=== PATIENT | female | born 1950 | race Caucasian/White ===

== ENCOUNTER → 2021-08-20 16:35 | Outpatient (CLI) | payer MEDICARE, SELFPAY ==
[2021-08-20 17:20] LABS: Hematocrit 29.1 % (37-47); Hemoglobin 9.5 g/dL (12.0-15.0); Mean Corp Hgb Conc 32.6 g/dL (32-36); Mean Corpuscular Hgb 30.9 pg (27.0-32.0); Mean Corpuscular Volume 94.8 fL (81-99); Mean Platelet Vol. 9.7 fl (6.2-12.0); POSITIVE COUNT YES; POSITIVE DIFFERENTIAL YES; POSITIVE MORPHOLOGY YES; Platelet Count 229 K/mm3 (150-450); RBC Distribution Width CV 14.9 % (11.6-14.6); RBC Distribution Width SD 51.4 fl (35.1-43.9); Red Blood Count 3.07 M/mm3 (4.2-5.4); White Blood Count 16.6 K/mm3 (4.4-11.0)
[2021-08-20 17:28] LABS: Differential Indicated MANUAL DIFF
[2021-08-20 17:50] LABS: Lymphocyte 10 % (19-41); Monocyte 7 % (0-10); Neutrophil-Band 1 % (0-5); Neutrophil-Segmented 82 % (47-70); Nucleated Red Bld Cells,Manual 3 % (0-5); Total Cells Counted 100 (MANUAL DIFF)
[2021-08-20 17:51] LABS: Absolute Neutrophil Count 13.7 X10^3/uL (2.0-7.7)
[2021-08-20 17:52] LABS: Absolute Lymphocyte Count 1.66 X10^3/uL (0.83-4.51)
[2021-08-20 17:58] LABS: ALB/GLOB Ratio 0.9 RATIO (0.9-2.4); AST(SGOT) 21 U/L (15-37); Alanine Aminotransfer ALT/SGPT 45 U/L (13-56); Alkaline Phosphatase 106 U/L (45-117); Anion Gap 8 (5-15); BUN 51 mg/dL (7-18); BUN/Creat Ratio 27.4 RATIO (10-20); Chloride 99 mmol/L (98-107); Creatinine, Serum 1.86 mg/dL (0.55-1.02); EST Glomerular Filtration Rate 28 mL/min (>60); Est Glom Filt Rate - Afr Amer 34 mL/min (>60); Globulin 3.4 g/dL (2.2-4.2); Glucose 248 mg/dL (74-106); Potassium 3.5 mmol/L (3.5-5.1); Protein, Total 6.4 g/dL (6.4-8.2); Sodium Level 143 mmol/L (136-145); Thyroid Stim Hormone (TSH) 0.65 uIU/mL (0.358-3.74)
[2021-08-21 02:26] LABS: Red Cell Morphology NORM C+C NORMAL (NORM C&C)
[2021-08-21 02:29] LABS: Platelet Estimate ADEQUATE (ADEQ)
[2021-08-21 10:35] LABS: Hepatitis C Antibody Non-Reactive (Nonreactive); Vitamin D,25 Hydroxy 32.4 ng/mL
[2021-08-21 14:13] LABS: Pathologist Review Reviewed
[2021-08-22 13:35] LABS: Hemoglobin A1c 8.4 % (3.8-5.6)
== END ==
PROVIDERS: PCP Family Medicine Geriatric Medicine; Visit Provider Family Medicine Geriatric Medicine
DX: Z13.89 Encounter for screening for other disorder (principal); E55.9 Vitamin D deficiency, unspecified; R79.9 Abnormal finding of blood chemistry, unspecified; R53.83 Other fatigue
CPT/HCPCS: 36415; 80053; 82306; 83036; 84443; 85025; 86803

== ENCOUNTER → 2021-08-26 10:00 | Outpatient (CLI) | payer MEDICARE, SELFPAY ==
[2021-08-26 12:42] LABS: Absolute Lymphocyte Count 1.25 X10^3/uL (0.83-4.51); Absolute Neutrophil Count 13.2 X10^3/uL (2.0-7.7); Basophil# 0.05 X10^3/uL; Basophil% 0.3 % (0-1); Hematocrit 32.6 % (37-47); Hemoglobin 10.2 g/dL (12.0-15.0); Lymphocyte # 1.25 X10^3/ul (0.83-4.51); Lymphocyte % 7.7 % (19-41); Mean Corp Hgb Conc 31.3 g/dL (32-36); Mean Corpuscular Hgb 30.1 pg (27.0-32.0); Mean Corpuscular Volume 96.2 fL (81-99); Mean Platelet Vol. 10.5 fl (6.2-12.0); Monocyte# 1.25 X10^3/uL; Monocyte% 7.7 % (0-10); NRBC Flagged by Analyzer 0.1 % (0-5); Neutrophil # 13.23 X10^3/uL (2.7-7.7); Platelet Count 209 K/mm3 (150-450); RBC Distribution Width CV 14.7 % (11.6-14.6); RBC Distribution Width SD 51.4 fl (35.1-43.9); RET-HE 35.5 pg (30-35); Red Blood Count 3.39 M/mm3 (4.2-5.4); Reticulocyte Count 1.96 % (0.5-1.5); White Blood Count 16.3 K/mm3 (4.4-11.0)
[2021-08-26 12:55] LABS: Vitamin B12 1223 pg/mL (211-911)
[2021-08-26 13:10] LABS: Ferritin 63 ng/mL (8-252); Iron 64 ug/dL (50-170); Iron Binding Capacity,Total 300 ug/dL (250-450); PERCENT IRON SATURATION 21.3 % (15.0-55.0)
== END ==
PROVIDERS: PCP Family Medicine Geriatric Medicine; Visit Provider Family Medicine Geriatric Medicine
DX: D64.9 Anemia, unspecified (principal)
CPT/HCPCS: 36415; 82607; 82728; 82746; 83540; 83550; 85025; 85045

== ENCOUNTER → 2021-08-26 10:20 | Outpatient (CLI) | payer MEDICARE, SELFPAY ==
--- NOTE | 2021-08-26 10:34 | RAD_ITS ---
STUDY: X-RAY CHEST REASON FOR EXAM: Female, 71 years old. PLEURISY TECHNIQUE: PA and lateral views of the chest. COMPARISON: None. FINDINGS: Lungs are hyperexpanded with coarsened interstitial lung markings. Nodular densities of the right lung appear to correlate to anterior rib ends rather than parenchymal nodules. No dense airspace consolidation. There is no demonstrated pleural abnormality. Normal size heart. Normal mediastinum and yo. Normal visualized pulmonary arteries. There is atherosclerotic calcification of the aortic arch with tortuosity. There are diffuse degenerative changes of the visualized thoracic spine. Normal visualized ribs, clavicles, and shoulders. There is no demonstrated abnormality of the visualized soft tissue structures of the upper abdomen. RAD/Chest PA and Lateral IMPRESSION: 1. No airspace consolidation or pleural effusion. No pneumothorax. 2. Coarsened interstitial lung markings. Probable artifact/rib ends of the right chest rather than pulmonary nodule. However, no comparison study. Recommend either short-term follow-up versus chest CT. Electronically Signed: Bro Carrera MD (Brooks) at 11:24 EST , Service support ,
== END ==
PROVIDERS: PCP Family Medicine Geriatric Medicine; Referring Provider Family Medicine Geriatric Medicine; Visit Provider Family Medicine Geriatric Medicine
DX: R09.1 Pleurisy (principal)
CPT/HCPCS: 71046

== ENCOUNTER → 2021-09-05 15:57 | Outpatient (CLI) | payer MEDICARE, SELFPAY ==
--- NOTE | 2021-09-05 16:00 | RAD_ITS ---
STUDY: X-RAY - ABDOMEN/PELVIS REASON FOR EXAM: Female, 71 years old. ABD PAIN TECHNIQUE: Two AP supine views of the abdomen and pelvis. COMPARISON: None. FINDINGS: Normal visualized lung bases. There is a moderate amount of colonic fecal material. Gaseous distended loops of large bowel. There is no demonstrated free abdominal air. The visualized liver, spleen and kidneys are grossly normal in size and morphology. Normal soft tissue structures. There are diffuse degenerative changes of the visualized lumbar spine. Left hip postsurgical changes RAD/Abdomen Single View IMPRESSION: Fecal retention in the colon. Gaseous distended loops of large bowel. Electronically Signed: Guevara Demarco DO at 6:41 EST Tel , Service support ,
[2021-09-05 17:40] LABS: Anion Gap 8 (5-15); BUN 30 mg/dL (7-18); BUN/Creat Ratio 13.8 RATIO (10-20); Calcium,Total 9.9 mg/dL (8.5-10.1); Chloride 98 mmol/L (98-107); Creatinine, Serum 2.17 mg/dL (0.55-1.02); EST Glomerular Filtration Rate 24 mL/min (>60); Est Glom Filt Rate - Afr Amer 29 mL/min (>60); Glucose 104 mg/dL (74-106); Potassium 4.1 mmol/L (3.5-5.1); Sodium Level 140 mmol/L (136-145)
[2021-09-05 17:43] LABS: Absolute Lymphocyte Count 1.58 X10^3/uL (0.83-4.51); Absolute Neutrophil Count 10.5 X10^3/uL (2.0-7.7); Basophil# 0.03 X10^3/uL; Basophil% 0.2 % (0-1); Eosinophil# 0.22 X10^3/uL; Eosinophils% 1.7 % (0-5); Hematocrit 34.3 % (37-47); Hemoglobin 10.7 g/dL (12.0-15.0); Lymphocyte # 1.58 X10^3/ul (0.83-4.51); Lymphocyte % 11.9 % (19-41); Mean Corp Hgb Conc 31.2 g/dL (32-36); Mean Corpuscular Hgb 30.4 pg (27.0-32.0); Mean Corpuscular Volume 97.4 fL (81-99); Mean Platelet Vol. 10.4 fl (6.2-12.0); Monocyte# 0.91 X10^3/uL; Monocyte% 6.8 % (0-10); NRBC Flagged by Analyzer 0 % (0-5); Neutrophil # 10.48 X10^3/uL (2.7-7.7); Neutrophil % 78.7 % (47-70); Platelet Count 193 K/mm3 (150-450); RBC Distribution Width CV 14.6 % (11.6-14.6); RBC Distribution Width SD 52.2 fl (35.1-43.9); Red Blood Count 3.52 M/mm3 (4.2-5.4); White Blood Count 13.3 K/mm3 (4.4-11.0)
== END ==
PROVIDERS: PCP Family Medicine Geriatric Medicine; Referring Provider Family Medicine Geriatric Medicine; Visit Provider Family Medicine Geriatric Medicine
DX: R10.9 Unspecified abdominal pain (principal)
CPT/HCPCS: 36415; 74018; 80048; 85025

== ENCOUNTER 2021-09-11 07:35 | Day surgery (SDC) | payer MEDICARE, SELFPAY ==
[2021-09-11 08:09] VITALS: BP 126/57; PULSE 79; RESP 18; TEMP 36.9; O2SAT 99; BMI 23.1
--- NOTE | 2021-09-11 08:18 | HP.PCM_ITS ---
History and Physical Date of Admission: 09/11/21 Date of Service: 09/05/21 MR#:[id number]:[id number]: VIKKI BATEMAN [facility] #:[id number]:1950 Provider:Damion Zaidi/Sex: 71/F [facility]Signed Intake Vital Signs 09/05/21 13:30 Height 5 ft 10 in Weight: 165 lb 8 oz BMI 23.7 BP 136/78 H Blood Pressure Location Rt brachial Position Sitting Respiration 18 Pulse 100 Pulse Source NIBP Temp 97.8 F Temp Source Temporal Pulse Oximetry (%) 97 Oxygen Delivery Method room air Intake Visit Reasons: ANEMIA, EGD, CSCOPE Chief Complaint: anemia, gerd, fam hx colon cancer Soap Maker Required: No Is patient in pain?: No Allergies No Known Allergies Allergy (Verified 09/05/21 13:31) Medications bacitracin zinc 500 unit/gram topical ointment gm TOPICAL 09/05/21 [History Confirmed 09/05/21] citalopram 10 mg tablet 10 mg PO DAILY tab 09/05/21 [History Confirmed 09/05/21] glimepiride 1 mg tablet 1 mg PO BID tab 09/05/21 [History Confirmed 09/05/21] ipratropium 0.5 mg-albuterol 3 mg (2.5 mg base)/3 mL nebulization soln 3 ml CONTINUOUS NEBULIZATION TID PRN ml 09/05/21 [History Confirmed 09/05/21] metoprolol tartrate 25 mg tablet 25 mg PO BID tab 09/05/21 [History Confirmed 09/05/21] oxymetazoline 0.05 % nasal spray 2 spray INTRANASAL BID PRN ml 09/05/21 [History Confirmed 09/05/21] pantoprazole 40 mg tablet,delayed release 40 mg PO DAILY tab 09/05/21 [History Confirmed 09/05/21] Is last menstrual period known: No Post menopausal: Yes Patient : No PFSH Medical History (Updated 09/06/21 @ 12:[address] Rebeca Snow MD) Anxiety and depression COPD (chronic obstructive pulmonary disease) Diabetes Heart attack HTN (hypertension) Surgical History (Updated 09/06/21 @ 12:[address] Rebeca Snow MD) History of cardiac catheterization History of colonoscopy Hx of appendectomy Family History (Updated 09/05/21 @ 13:30 by Natasha Vail) Mother Colon cancer HPI HPI HPI: VIKKI BATEMAN, is a 71 F who presents to the office today for endoscopy due to anemia. Patient's hemoglobin was 9.5/10.2 on the most recent checks. Patient did recently moved from [place] to here and now lives with her other son. Patient does have issues with constipation but she states she does have bowel moods daily denies any blood. Patient told on colonoscopy when she was about 28 years old negative per patient patient's mom did have colon cancer at age 45. Patient does have reflux and does need to take Tums at night 2 to 3 days a week and occasionally she has taken Pepto-Bismol previously. Patient also has quite a poor appetite per her [id number] who is accompanying along with her son who was on the phone during the visit she only eats for five bites at each meal. Patient just states she is not hungry. Patient does have a history of COPD is on two and half to 3 L nasal cannula. Patient did just start on some fiber Gummies to try to help with constipation. Patient is not aware of her medication however we did call the pharmacy and now she is not on any blood thinners but she is also on Protonix 40 mg once a day. Patient's nczkwimk-[id number]-jyw and son also states she only drinks maybe about 24 ounces of liquid daily and that is with him trying to get her to eat/drink. ROS General General: No weight change, appetite, fatigue, colon cancer, breast cancer or weakness HEENT HEENT: No difficulty swallowing, eye injury, eye surgery, swollen glands or hoarseness Endo Endocrine: Yes diabetes mellitus; No thyroid disease, thyroid cancer, Hair loss, heat intolerance or cold intolerance Musc Musculoskeletal: No back problems, arthritis, rheumatoid arthritis, gout or joint pain Cardio Cardiovascular: Yes high blood pressure and heart attack; No murmur, pacemaker, heart disease, atrial fibrillation, heart stent, palpitations, shortness of breat with exertion or chest pain Psych Psychiatric: Yes depression and anxiety; No hearing voices Resp Respiratory: Yes shortness of breath, No sleep apnea, Yes cough, Yes COPD, No asthma, No emphysema and No wheezing Gastro Gastrointestinal: No abdominal pain, No nausea or vomiting, No diarrhea, No constipation, No blood in stool, No acid reflux, No hemorrhoids, No ulcers, No gallbladder problem and No black,tarry stools Mariusz Hematologic: Yes blood thinners, No blood disorders, No bleeding, No anemia and No blood clots Neuro Neurologic: No weakness Exam Const General: cooperative, comfortable and no acute distress Neck Neck: normal visual inspection Resp Effort & Inspection: normal respiratory effort and other (with supplemental O2 NC) Cardio Rate: regular rate GI Inspection: non-distended Palpation: soft, no guarding and nontender Skin General: no rashes or lesions noted Neuro General: patient oriented x3 Psych Affect: flat COVID (Procedure Consent) Procedure Criteria Procedure Criteria: Yes Elective The surgeon/proceduralist and patient have discussed in detail the risk of exposure to and/or potential harm posed by the COVID-19 virus with having a surgery/procedure at this time versus the risk of delaying the surgery/procedure. It is not possible to know either the risk of delaying the surgery or procedure or chance of getting an infection with perfect accuracy, but a joint decision was made between the patient and the surgeon/proceduralist to proceed at this time with the scheduled surgery/procedure as indicated on the consent form. Assessment and Plan Assessment and Plan (1) Anemia: Status: Acute (2) GERD (gastroesophageal reflux disease): Status: Acute (3) Constipation: Status: Acute Plan - Dr. Rebeca Snow MD: I have discussed the above with the patient. I have offered the patient EGD and colonoscopy for evaluation. I have explained the risks/benefits of the procedure and described the procedure. I have discussed the risks with the patient, including but not limited to: infection, bleeding, perforation of the GI tract requiring immanuel gency surgery, inability to complete the procedure, injury to any internal organs, complications of anesthesia, etc. - the patient understands and agrees to proceed. I have answered all the patient's questions to the patient's satisfaction and the patient has no further questions. The patient has been given instructions for the colon cleansing preparation. 2 days of clears Dulcolax and magnesium citrate prep for both days as patient is only drinks limited amount of liquids daily. Rebeca Snow M.D. Pager: [phone] [facility] [address] [place] [address], [address] [place] [address] Office: [phone] Coding Level of Care Code Off vis,new,level 3 Diagnoses Anemia D64.9 GERD (gastroesophageal reflux disease) K21.9 Constipation K59.00 09/06/21 1257<Electronically signed by Rebeca Snow MD>Date Rebeca Snow MD
[2021-09-11] MEDS: Lactated Ringers 1,000 ML 15 ML IV (08:22)
[2021-09-11 08:36] LABS: Bedside Glucose 111 mg/dL (70-110)
--- NOTE | 2021-09-11 08:45 | IMM_PTH ---
PATIENT: VIKKI BATEMAN LOC: EN U#:[id number] AGE/SX: 71/F ROOM: RE09/11/[address]: Dr. Rebeca Snow MD : 1950 BED: DIS: 09/11/2021 SPEC #: [id number] RECD: 09/11/21 12:43 STATUS: MELVA REQ #: [id number] EMMANUEL: 09/11/21 08:[address]: Rebeca Snow DEPT: IMMUNOHISTOCHEMISTRY RECD BY: Ifeoma Brody ENTERED: 09/11/21 12:44 SP TYPE: IMMUNO OTHR DR: Dr. Kain James MD Tissues: A - Stomach, NOS B - Cardioesophageal junction Procedures: MACRO (initial) H Pylori (initial) CK20 (add) CK7 (add) P53 (add) Vimentin (add) Pankeratin (add) PHYSICIAN & INSTITUTION [facility] [id number] SPECIMEN INFORMATION: Tissue Source: A ? Pre-pyloric biopsy, B ? Gastric cardia near GE junction Clinical Info: Anemia, GERD, constipation Specimen Number: [id number] A & B CPT code: 32121 x2, 02836 x5 METHODOLOGY: Deparaffinized sections of prefer/formalin-fixed tissue or PAP/DQ stained slides are incubated with monoclonal/polyclonal antibodies/oligonucleotide probes. Localization is made via biotin free immunoperoxidase method. Appropriate controls are performed and reacted as expected. Results on target cell population are indicated in the following table: RESULTS: ANTIBODY / CLONE RESULT Block A H Pylori (polyclonal) negative Block B Macro (HAM-56) positive, dim AE1-3 (AE1/AE3/PCK26) negative P53 (DO-7) negative CK7 (OV-TL12/30) negative CK20 (KS20.8) negative Vimentin (V9) positive These tests were developed and their performance characteristics determined by [facility]. They may not have been cleared or approved by the U.S. Food and Drug Administration. The FDA has determined that such clearance or approval is not necessary. The above immunohistochemical/dualISH markers are ordered and reviewed by the pathologist. INTERPRETATION: A. Pre-pyloric biopsy: Negative for Helicobacter pylori organisms. B. 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 AM:shauna 09/13/2021
--- NOTE | 2021-09-11 08:45 | COLBX_PTH ---
PATIENT: VIKKI BATEMAN LOC: EN U#:[id number] AGE/SX: 71/F ROOM: RE09/11/[address]: Dr. Rebeca Snow MD : 1950 BED: DIS: 09/11/2021 SPEC #: [id number] RECD: 09/11/21 10:13 STATUS: MELVA GUILLERMINA #: [id number] EMMANUEL: 09/11/21 08:[address]: Rebeca Snow DEPT: SURGICAL PATHOLOGY RECD BY: Jose Traore ENTERED: 09/11/21 11:21 SP TYPE: COLON BX OTHR DR: Dr. Kain James MD Tissues: A - Gastric mucous membrane B - Gastric mucous membrane Procedures: Surgery Specimen Level IV HEADER OPERATION: Colonoscopy, EGD ([facility] [place]) PRE-OP DIAGNOSIS: Anemia, GERD, constipation TISSUE SUBMITTED: A ? Pre-pyloric biopsy for H. pylori and path, B ? Gastric cardia near GE junction biopsy MICROSCOPIC DIAGNOSIS A. Gastric mucosa, pre-pyloric, biopsy: Minimal chronic inflammation. See comment. B. 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 See comment. AM:shauna 09/12/2021 COMMENT A. The results of immunohistochemistry for Helicobacter pylori will be reported separately ([id number]). B. Alcian blue/PAS stain with matched control supports the above diagnosis. Immunohistochemistry ([id number]) supports the above diagnosis. MICROSCOPIC DESCRIPTION Slides are reviewed. GROSS DESCRIPTION A - Received in fixative is one container labeled with the patient's name and designated pre-pyloric biopsy. The specimen consists of one irregular fragment of light bernstein soft tissue that measures 0.5 x 0.3 x 0.1 cm. The specimen is totally submitted in one cassette. B - Received in fixative is one container labeled with the patient's name and designated gastric cardia. The specimen consists of one irregular fragment of light bernstein soft tissue that measures 0.6 x 0.3 x 0.1 cm. The specimen is totally submitted in one cassette. / AM:shauna 09/11/21 TC:3 CPT: 00292 x2
[2021-09-11 09:15] VITALS: BP 126/57; BP 140/56; PULSE 84; RESP 22; TEMP 36.8; O2SAT 99
--- NOTE | 2021-09-11 09:16 | OP.EGD_ITS ---
Patient Name: Genny Geiger Procedure Date: 09/11/2021 8:27 AM Date of : 1950 Age: 71 Procedure: Upper GI endoscopy Indications: Iron deficiency anemia, Esophageal reflux, Anorexia Providers: Rebeca Snow MD Medicines: Monitored Anesthesia Care Patient Profile: This is a 71 year old female. Complications: No immediate complications. Procedure: Pre-Anesthesia Assessment: - Prior to the procedure, a History and Physical was performed, and patient medications and allergies were reviewed. The patient's tolerance of previous anesthesia was also reviewed. The risks and benefits of the procedure and the sedation options and risks were discussed with the patient. All questions were answered, and informed consent was obtained. Prior Anticoagulants: The patient has taken no previous anticoagulant or antiplatelet agents. ASA Grade Assessment: Per anesthesia. After reviewing the risks and benefits, the patient was deemed in satisfactory condition to undergo the procedure. After obtaining informed consent, the endoscope was passed under direct vision. Throughout the procedure, the patient's blood pressure, pulse, and oxygen saturations were monitored continuously. The Endoscope was introduced through the mouth, and advanced to the second part of duodenum. The upper GI endoscopy was accomplished without difficulty. The patient tolerated the procedure well. Scope In: 8:36:32 AM Scope Out: 8:42:24 AM Total Procedure Duration Time 0 hours 5 minutes 52 seconds Findings: The Z-line was variable. A small hiatal hernia was present. The examined duodenum was normal. Mildly erythematous mucosa without bleeding was found in the prepyloric region of the stomach. Biopsies were taken with a cold forceps for histology. Biopsies were taken with a cold forceps for Helicobacter pylori cultures. Localized mild mucosal changes characterized by erythema were found in the cardia near GEJ. Biopsies were taken with a cold forceps for histology. Impression: - Z-line variable. - Small hiatal hernia. - Normal examined duodenum. - Erythematous mucosa in the prepyloric region of the stomach. Biopsied. - Erythematous mucosa in the cardia. Biopsied. Recommendation: - Await pathology results. - Continue present medications. - Use sucralfate tablets 1 gram PO QID for 2 days. Procedure Code(s): --- Professional --- 77083, Esophagogastroduodenoscopy, flexible, transoral; with biopsy, single or multiple Diagnosis Code(s): --- Professional --- K22.8, Other specified diseases of esophagus K44.9, Diaphragmatic hernia without obstruction or gangrene K31.89, Other diseases of stomach and duodenum D50.9, Iron deficiency anemia, unspecified K21.9, Gastro-esophageal reflux disease without esophagitis R63.0, Anorexia CPT copyright 2017 [employer]. All rights reserved. The codes documented in this report are preliminary and upon remote medical coder review may be revised to meet current compliance requirements. MD Rebeca Duggan MD 09/11/2021 9:15:39 AM This report has been signed electronically. Number of Addenda: 0 Note Initiated On: 09/11/2021 8:27 AM
--- NOTE | 2021-09-11 09:17 | OP.CCLET_ITS ---
09/11/2021 Kain James MD [address] [place] [address] Re : Upper GI endoscopy procedure for Genny Geiger Dear Dr. James This procedure was performed on Saturday, September 11, 2021. My impressions and recommendations are as follows: Impressions : - Z-line variable. - Small hiatal hernia. - Normal examined duodenum. - Erythematous mucosa in the prepyloric region of the stomach. Biopsied. - Erythematous mucosa in the cardia. Biopsied. Recommendations : - Await pathology results. - Continue present medications. - Use sucralfate tablets 1 gram PO QID for 2 days. My findings are described in the full procedure note, which is enclosed. If I can be of further assistance, please feel free to contact me at Doctor phone number(s): , Work: . Sincerely, MD Rebeca Duggan MD 09/11/2021 9:15:39 AM This report has been signed electronically.
[2021-09-11 09:20] VITALS: BP 126/57; BP 135/55; PULSE 85; RESP 16; O2SAT 98
--- NOTE | 2021-09-11 09:24 | OP.COLON_ITS ---
Patient Name: Genny Geiger Procedure Date: 09/11/2021 8:43 AM Date of : 1950 Age: 71 Procedure: Colonoscopy Indications: Family history of colon cancer in a first-degree relative, Iron deficiency anemia Providers: Rebeca Snow MD Medicines: Monitored Anesthesia Care Patient Profile: This is a 71 year old female. Last Colonoscopy: more than 10 years ago. Complications: No immediate complications. Procedure: Pre-Anesthesia Assessment: - Prior to the procedure, a History and Physical was performed, and patient medications and allergies were reviewed. The patient's tolerance of previous anesthesia was also reviewed. The risks and benefits of the procedure and the sedation options and risks were discussed with the patient. All questions were answered, and informed consent was obtained. Prior Anticoagulants: The patient has taken no previous anticoagulant or antiplatelet agents. ASA Grade Assessment: Per anesthesia. After reviewing the risks and benefits, the patient was deemed in satisfactory condition to undergo the procedure. After I obtained informed consent, the scope was passed under direct vision. Throughout the procedure, the patient's blood pressure, pulse, and oxygen saturations were monitored continuously. The Colonoscope was introduced through the anus and advanced to the cecum, identified by the ileocecal valve. The colonoscopy was performed without difficulty. The patient tolerated the procedure well. The quality of the bowel preparation was good. Scope In: 8:45:28 AM Scope Withdrawal Time 0 hours 12 minutes 52 seconds Scope Out: 9:09:31 AM Total Procedure Duration Time 0 hours 24 minutes 3 seconds Findings: The perianal and digital rectal examinations were normal. Multiple small-mouthed diverticula were found in the sigmoid colon, descending colon and transverse colon. The entire examined colon appeared normal on direct and retroflexion views. Impression: - Diverticulosis in the sigmoid colon, in the descending colon and in the transverse colon. - The entire examined colon is normal on direct and retroflexion views. - No specimens collected. Recommendation: - Discharge patient to home. - Resume previous diet. - Continue present medications. - Repeat colonoscopy in 5 years for screening purposes. Procedure Code(s): --- Professional --- 72010, Colonoscopy, flexible; diagnostic, including collection of specimen(s) by brushing or washing, when performed (separate procedure) Diagnosis Code(s): --- Professional --- Z80.0, Family history of malignant neoplasm of digestive organs D50.9, Iron deficiency anemia, unspecified K57.30, Diverticulosis of large intestine without perforation or abscess without bleeding CPT copyright 2017 [employer]. All rights reserved. The codes documented in this report are preliminary and upon pressed or blown glass worker review may be revised to meet current compliance requirements. MD Rebeca Duggan MD 09/11/2021 9:24:19 AM This report has been signed electronically. Number of Addenda: 0 Note Initiated On: 09/11/2021 8:43 AM
[2021-09-11 09:25] VITALS: BP 126/57; BP 129/76; PULSE 68; RESP 16; O2SAT 100
--- NOTE | 2021-09-11 09:25 | OP.CCLET_ITS ---
09/11/2021 Kain James MD [address] [place] [address] Re : Colonoscopy procedure for Genny Geiger Dear Dr. James This procedure was performed on Saturday, September 11, 2021. My impressions and recommendations are as follows: Impressions : - Diverticulosis in the sigmoid colon, in the descending colon and in the transverse colon. - The entire examined colon is normal on direct and retroflexion views. - No specimens collected. Recommendations : - Discharge patient to home. - Resume previous diet. - Continue present medications. - Repeat colonoscopy in 5 years for screening purposes. My findings are described in the full procedure note, which is enclosed. If I can be of further assistance, please feel free to contact me at Doctor phone number(s): , Work: . Sincerely, MD Rebeca Duggan MD 09/11/2021 9:24:19 AM This report has been signed electronically.
[2021-09-11 09:30] VITALS: BP 126/57; BP 152/68; PULSE 68; RESP 16; TEMP 36.8; O2SAT 100
[2021-09-11 09:54] VITALS: BP 126/57
== END 2021-09-11 09:59 | disposition home or self-care (01) ==
LOC: EN 07:35 → AC 07:36
PROVIDERS: PCP Family Medicine Geriatric Medicine; Referring Provider Family Medicine Geriatric Medicine; Visit Provider Surgery
PROC: 0DJD8ZZ Inspection of Lower Intestinal Tract, Via Natural or Artificial Opening Endoscopic (ICD-10-PCS; CPT 45378; principal; 2021-09-11 08:40)
DX: K21.9 Gastro-esophageal reflux disease without esophagitis (principal); K44.9 Diaphragmatic hernia without obstruction or gangrene; K31.89 Other diseases of stomach and duodenum; D50.9 Iron deficiency anemia, unspecified; R63.0 Anorexia; Z68.23 Body mass index [BMI] 23.0-23.9, adult; K57.30 Diverticulosis of large intestine without perforation or abscess without bleeding; E11.9 Type 2 diabetes mellitus without complications; E78.00 Pure hypercholesterolemia, unspecified; J44.9 Chronic obstructive pulmonary disease, unspecified; I10 Essential (primary) hypertension; I25.2 Old myocardial infarction; F32.A Depression, unspecified; F41.9 Anxiety disorder, unspecified; Z79.01 Long term (current) use of anticoagulants; Z79.84 Long term (current) use of oral hypoglycemic drugs; Z99.81 Dependence on supplemental oxygen; Z79.899 Other long term (current) drug therapy; Z87.891 Personal history of nicotine dependence; Z80.0 Family history of malignant neoplasm of digestive organs
CPT/HCPCS: 43239; G0105; 82962; 88305; 88341; 88342; J7120